=== PATIENT | female | born 1930 | race Hispanic/Latino ===

== ENCOUNTER → 2017-10-12 | Outpatient (CLI) | payer MEDICARE ==
--- NOTE | 2017-10-12 11:03 | Diagnostic Imaging Report ---
History: Headache Comparison studies: None Technique: Sagittal T2; axial DWI, FLAIR, MPGR, T1, Coronal FLAIR. Intravenous contrast: None Findings: Scalp: Normal in signal . No masses . Bone marrow: Normal in signal intensity. Extra-axial: No masses, no fluid collections. Brain sulci: Appropriate for age. Ventricles: Normal in size . No hydrocephalus . Parenchyma: Scattered and confluent T2/flair hyperintensities of the periventricular and the white matter No masses, hemorrhage, acute or chronic vascular insults. Suprasellar region: No abnormalities. Craniocervical junction: No abnormalities. Patent foramen magnum. No Chiari one malformation. Vessels: Normal flow-voids in the arteries and sinuses. Bilateral cataract surgery changes. IMPRESSION: 1. No acute abnormalities. 2. 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 on 10/12/2017 10:59 AM
== END | disposition home or self-care (01) ==
LOC: MRI 08:44
PROVIDERS: ATTEND Specialist
DX: R51 Headache (principal); H53.8 Other visual disturbances
CPT/HCPCS: 36415; 70551; 85651